=== PATIENT | male | born 1945 | race Caucasian/White ===

== ENCOUNTER 2018-08-11 11:36 | Day surgery (SDC) | payer OTHER, BC ==
[2018-08-10 15:46] VITALS: BMI 25.0
[2018-08-11 12:53] LABS: HEMATOCRIT 40.7 % (35.4-49); HEMOGLOBIN 13.9 GM/dL (11.7-16.9); MCH 31.5 pg (25.7-33.7); MEAN CELL VOLUME 92.5 fl (80-96); MEAN PLT VOLUME 7.2 fl (7.5-11.1); PLATELET COUNT 245 K/MM3 (134-434); RDW 13.5 % (11.9-15.9); WHITE BLOOD COUNT 9.8 K/mm3 (4.0-10.0)
[2018-08-11 13:06] LABS: INR 1.15 (0.83-1.09); PROTHROMBIN TIME (PATIENT) 13.6 SEC (9.7-13.0)
[2018-08-11 13:31] LABS: ALBUMIN 3.4 g/dl (3.4-5.0); ALK PHOS 110 U/L (45-117); ANION GAP 5 MMOL/L (8-16); BILIRUBIN,TOTAL 0.5 mg/dL (0.2-1); BLOOD UREA NITROGEN 13 mg/dL (7-18); CALCIUM 8.9 mg/dL (8.5-10.1); CHLORIDE 105 mmol/L (98-107); CO2 27 mmol/L (21-32); CREATININE 0.9 mg/dL (0.55-1.3); GLUCOSE,RANDOM 88 mg/dL (74-106); POTASSIUM 4.6 mmol/L (3.5-5.1); SGOT/AST 16 U/L (15-37); SGPT/ALT 22 U/L (13-61); SODIUM 136 mmol/L (136-145)
[2018-08-11] MEDS ORDERED: ONDANSETRON 4 MG/2 ML VIAL IVPUSH PRN (13:34)
[2018-08-11] MEDS ORDERED: PROMETHAZINE HCL 25 MG/1 ML VIAL IVPB PRN (13:34)
[2018-08-11] MEDS ORDERED: oxyCODONE HCL 5 MG TABLET PO PRN (13:34)
[2018-08-11] MEDS ORDERED: ceFAZolin SODIUM 1 GM VIAL IVPB ONE (13:36)
[2018-08-11] MEDS ORDERED: MIDAZOLAM HCL 2 MG/2 ML SINGLE DOSE VIAL ONE (13:46)
[2018-08-11] MEDS ORDERED: PROPOFOL 20 ML ONE (13:52)
--- NOTE | 2018-08-11 15:35 | OP ---
Operative Note - Note: Operative Date: 08/11/18 Pre-Operative Diagnosis: Hematuria and Bladder tumor Operation: TUR BT Findings: Very large extensive tumor from rt. lat wall to posterior wall. Severe bleeding. Large Bladder diverticula Post-Operative Diagnosis: Same as Pre-op Surgeon: Mulu Patterson Anesthesia: General Specimens Removed: Bladder tumor Operative Report Dictated: Yes
--- NOTE | 2018-08-11 16:45 | OP ---
DATE OF OPERATION: 08/11/2018 SURGEON: Mulu Patterson M.D. ANESTHESIA: General. PREOPERATIVE DIAGNOSIS: Hematuria. POSTOPERATIVE DIAGNOSIS: Bladder tumor. PROCEDURE PERFORMED: Transurethral resection and fulguration of bladder tumor. FINDINGS: Urethra normal. The bladder neck shows mild prostatic hypertrophy. A large bladder tumor was noted on the posterior wall, extending onto the right lateral wall. The bladder is extremely large. Two very large bladder diverticula noted in the posterior wall. The tumor was found to be arising from one of the diverticula. Since the bladder wall is so large, it was very difficult to visualize the posterior wall and the roof. The scope would not reach that area. The ureteral orifices appeared to be normally located, with good efflux. DESCRIPTION OF PROCEDURE: With the patient in the lithotomy position, under spinal anesthesia, was prepped and draped in the usual manner. Using a 26 Hopson resectoscope, first the bladder was inspected. Then resection of the growth carried out. The tumor was found to be extending from the posterior wall from a diverticulum. The diverticular wall was extremely thin. The entire tumor was resected deep to the bladder musculature. At the end, all the tumors were completely resected and fulgurated. All the resected tumors were removed using the Jarrett evacuator. The base was completely fulgurated to stop the bleeding. A 22 Herring was left indwelling. The patient tolerated the procedure well and left the operating room in satisfactory condition. Sonu [id number]
[2018-08-11 17:05] VITALS: TEMP 97.6
[2018-08-11 17:49] VITALS: BP 126/71; PULSE 73
--- NOTE | 2018-08-13 14:27 | PATH ---
Surgical Pathology Report Patient Name: KARO NELSON [facility]. Rec. #: [id number] /Age/Gender: 1945 (Age: 73) / M Account: [id number] Location: [facility] SURGICAL Taken: 08/11/2018 Received: 08/12/2018 Reported: 08/13/2018 Physicians: Mulu Patterson M.D. 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 CARCINOMA IS INVASIVE INTO MUSCULARIS PROPRIA/DETRUSOR MUSCLE. NO LYMPH VASCULAR INVASION OR UROTHELIAL CARCINOMA IN SITU IDENTIFIED. Comment: This case was discussed with Dr. Patterson on August 13, 2018. Electronically Signed Gus Serrano M.D. Gross Description Received in formalin labeled "bladder tumor," is a 6.0 x 4.0 x 0.7 cm aggregate of jenkins-brown soft tissue fragments. The formalin is filtered and the specimen is entirely submitted in 6 cassettes. /08/12/2018 saudi/08/12/2018
== END 2018-08-11 17:55 | disposition home or self-care (01) ==
LOC: JASU-SURG 11:36
PROVIDERS: ATTEND Urology
PROC: 0T5B8ZZ Destruction of Bladder, Via Natural or Artificial Opening Endoscopic (ICD-10-PCS; principal; 2018-08-11 13:00)
DX: C67.9 Malignant neoplasm of bladder, unspecified (principal)
CPT/HCPCS: 36415; 80053; 85027; 85610; 86850; 86900; 86901; 88305-TC; 94760

== ENCOUNTER 2019-01-03 09:30 | Emergency (ER) | payer OTHER, BC | END 2019-01-03 10:32 | disposition short-term general hospital (02) | LOC: JER 09:30 ==